=== PATIENT | female | born 1945 | race Caucasian/White ===

== ENCOUNTER → 2024-01-28 11:22 | Outpatient (REF) | payer MEDICARE, BC, SELFPAY | LOC: REG 11:22 | PROVIDERS: ATTENDING PHYSICIAN Internal Medicine | DX: M54.2 Cervicalgia (principal) | CPT/HCPCS: 72052 ==

== ENCOUNTER → 2024-08-25 08:10 | Outpatient (REF) | payer MEDICARE, BC, SELFPAY ==
[2024-08-25 09:19] LABS: % Basophils 1.1 % (0-2); % Eosinophils 5.1 % (0-6); % Immature Granulocytes 0.3 % (0-0.5); % Lymphocytes 26.6 % (20.5-51.1); % Monocytes 6.7 % (1.7-9.3); % Neutrophils 60.2 % (42.2-75.2); Absolute Basophils 0.1 10^3/uL (0-0.2); Absolute Eosinophils 0.4 10^3/uL (0-0.7); Absolute Lymphocytes 1.9 10^3/uL (1.2-3.4); Absolute Monocytes 0.5 10^3/uL (0.1-0.6); Absolute Neutrophils 4.3 10^3/uL (1.4-6.5); Hematocrit 50.3 % (37.0-47.0); Hemoglobin 15.8 g/dL (12.0-16.0); Mean Corp Hgb Conc. 31.4 g/dL (33.0-37.0); Mean Corpuscular Hgb 29.6 pg (27.0-31.0); Mean Corpuscular Volume 94.4 fL (81.0-99.0); Mean Platelet Volume 10.4 fL (7.4-10.4); Nucleated Red Blood Cells % 0 %; Platelet Count 219 10^3/uL (130-400); Red Blood Cell Count 5.33 10^6/uL (4.20-5.40); Red Cell Dist. Width 14.2 % (11.5-14.5); White Blood Cell Count 7.2 10^3/uL (4.8-10.8)
[2024-08-25 09:30] LABS: ALT (SGPT) 21 U/L (0-35); AST (SGOT) 21 U/L (14-36); Albumin 4.4 g/dl (3.5-5.0); Alkaline Phosphatase 137 U/L (38-126); Blood Urea Nitrogen 19 mg/dl (7-17); Calcium 9.5 mg/dl (8.4-10.2); Carbon Dioxide 27 mmol/L (22-30); Chloride 102 mmol/L (98-107); Glucose 137 mg/dl (70-99); HDL Cholesterol 72 mg/dl; LDL Cholesterol, Calculated 92 mg/dl; Potassium 4.6 mmol/L (3.5-5.1); Sodium 139 mmol/L (135-145); Total Bilirubin 0.7 mg/dl (0.2-1.3); Total Cholesterol 187 mg/dl (50-199); Total Protein 6.8 g/dl (6.3-8.2); Triglyceride 115 mg/dl (10-149); Very Low Density Lipoprotein 23 mg/dl (0-30); eGFR > 60.00
[2024-08-25 09:57] LABS: TSH Reflex To Free T4 1.43 uIU/ml (0.47-4.68)
[2024-08-25 10:19] LABS: Glycohemoglobin (HgbA1c) 6.2 % (4.0-5.6)
== END ==
LOC: REG 08:10
PROVIDERS: ATTENDING PHYSICIAN Internal Medicine
DX: I10 Essential (primary) hypertension (principal); E11.9 Type 2 diabetes mellitus without complications; E03.9 Hypothyroidism, unspecified
CPT/HCPCS: 36415; 80053; 80061; 83036; 84443; 85025

== ENCOUNTER → 2024-11-17 12:57 | Outpatient (REF) | payer OTHER, SELFPAY | LOC: WDC 12:57 | PROVIDERS: ATTENDING PHYSICIAN Internal Medicine | DX: Z78.0 Asymptomatic menopausal state (principal); Z12.31 Encounter for screening mammogram for malignant neoplasm of breast | CPT/HCPCS: 77063; 77067; 77080 ==

== ENCOUNTER → 2024-12-29 13:03 | Outpatient (REF) | payer OTHER, SELFPAY | LOC: RAD 13:03 | PROVIDERS: ATTENDING PHYSICIAN Internal Medicine | DX: M25.531 Pain in right wrist (principal) | CPT/HCPCS: 73110 ==

== ENCOUNTER → 2025-02-09 08:30 | Outpatient (REF) | payer OTHER, SELFPAY ==
[2025-02-09 10:49] LABS: Glycohemoglobin (HgbA1c) 6.5 % (4.0-5.6)
[2025-02-09 11:07] LABS: ALT (SGPT) 20 U/L (0-35); AST (SGOT) 18 U/L (14-36); Albumin 4.2 g/dl (3.5-5.0); Alkaline Phosphatase 140 U/L (38-126); Blood Urea Nitrogen 23 mg/dl (7-17); Calcium 9.8 mg/dl (8.4-10.2); Carbon Dioxide 26 mmol/L (22-30); Chloride 110 mmol/L (98-107); Glucose 124 mg/dl (70-99); HDL Cholesterol 64 mg/dl; LDL Cholesterol, Calculated 97 mg/dl; Potassium 5.4 mmol/L (3.5-5.1); Sodium 144 mmol/L (135-145); Total Bilirubin 0.9 mg/dl (0.2-1.3); Total Cholesterol 181 mg/dl (50-199); Total Protein 6.7 g/dl (6.3-8.2); Triglyceride 102 mg/dl (10-149); Very Low Density Lipoprotein 20 mg/dl (0-30); eGFR 57.66
[2025-02-09 11:17] LABS: TSH Reflex To Free T4 1.45 uIU/ml (0.47-4.68)
== END ==
LOC: REG 08:30
PROVIDERS: ATTENDING PHYSICIAN Internal Medicine
DX: Z13.31 Encounter for screening for depression (principal); I10 Essential (primary) hypertension; E11.9 Type 2 diabetes mellitus without complications; E03.9 Hypothyroidism, unspecified
CPT/HCPCS: 36415; 80053; 80061; 83036; 84443

== ENCOUNTER 2025-02-21 10:36 | Inpatient (IN) | payer OTHER, SELFPAY ==
[2025-02-20 22:22] VITALS: BP 147/63; BMI 38.8
[2025-02-20 22:24] VITALS: BP 147/63
[2025-02-20 23:01] VITALS: BP 131/57
--- NOTE | 2025-02-20 23:30 | EDRN ---
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
[2025-02-21] VITALS (14 sets, daily range): BP systolic 117–146; BP diastolic 49–76
--- NOTE | 2025-02-21 01:30 | EDRN ---
Patient and were updated on wait, patient is resting comfortably at this time states no pain at the moment, did offer ice or warm blanket, patient stated she had been urinating a lot so a urine specimen was sent, call oro in reach informed
patient to call if any issues.
[2025-02-21 01:37] LABS: Urine Character Clear (Clear)
[2025-02-21 01:49] LABS: Glucose - Point of Care 103 mg/dl (70-99)
--- NOTE | 2025-02-21 03:45 | EDRN ---
out to desk asking when they are going to be seen, patient is asleep at this time, informed him the providers are moving as quickly as they can and i will update them with any more information i can.
[2025-02-21] MEDS: NSS 500 IV (06:01)
[2025-02-21] MEDS: TORADOL 15 MG IV (06:02)
[2025-02-21 06:05] LABS: Hematocrit 43.1 % (37.0-47.0); Hemoglobin 14.4 g/dL (12.0-16.0); Mean Corp Hgb Conc. 33.4 g/dL (33.0-37.0); Mean Corpuscular Volume 89.6 fL (81.0-99.0); Nucleated Red Blood Cells % 0 %; Platelet Count 186 10^3/uL (130-400); Red Cell Dist. Width 14.4 % (11.5-14.5)
[2025-02-21 06:28] LABS: ALT (SGPT) 19 U/L (0-35); AST (SGOT) 19 U/L (14-36); Albumin 3.9 g/dl (3.5-5.0); Alkaline Phosphatase 109 U/L (38-126); Blood Urea Nitrogen 19 mg/dl (7-17); Calcium 9.2 mg/dl (8.4-10.2); Carbon Dioxide 24 mmol/L (22-30); Chloride 112 mmol/L (98-107); Estimated Creatinine Clearance 60 ml/min; Glucose 111 mg/dl (70-99); Lipase 156 U/L (23-300); Potassium 4.4 mmol/L (3.5-5.1); Sodium 142 mmol/L (135-145); Total Protein 6.2 g/dl (6.3-8.2); eGFR > 60.00
--- NOTE | 2025-02-21 06:49 | EDRN ---
Patient and family updated on labs, pain is better, aware she is just waiting on CT
--- NOTE | 2025-02-21 07:12 | EDRN ---
Report to Jhon Jackson
--- NOTE | 2025-02-21 08:28 | ED.GENMED ---
History of Present Illness
General
Chief Complaint: Musculo-Skeletal Complaint
Source: patient
Exam Limitations: none
Time Seen by Provider: 02/21/25 05:48
History of Present Illness
History of Present Illness:
79-year-old female complaining of severe left flank pain. Started while bending over in the kitchen. But actually started mildly 3 to 4 weeks ago. Much worse with this episode overnight. No urinary symptoms no general abdominal pain no fever
chills no chest pain shortness of breath. No pleuritic pain. Patient called an ambulance because of the severe pain
Past History
Past History
ED Past Medical History: HTN and NIDDM
ED Past Surgical History: Cholecystectomy and Orthopedic
Social History
Tobacco: Non-smoker
Personal:
Living: with family
Review of Systems
Review of Systems
All Other Systems: Not applicable
Respiratory: Reports no symptoms
Cardiac: Reports no symptoms
Phy Exam
Physical Exam
Physical Exam:
GENERAL: Alert and oriented in no apparent distress
EYE: Orbits normal.
NECK: Supple, no significant adenopathy.
ENT: Pharynx without erythema
CARDIAC: Regular rate and rhythm without any obvious murmurs.
LUNGS: Clear breath sounds,normal
ABDOMEN: Soft, tenderness left flank mild left upper quadrant tenderness. Mild left lower quadrant tenderness. No rebound or guarding no mass or hernia
NEUROLOGICAL: Alert and oriented , grossly non-focal
SKIN: Warm and dry, no rash or lesion, no discoloration, skin intact.
MUSCULOSKELETAL: No edema,no deformity.Good color
PSYCH: Normal and appropriate interaction.
Course
Orders/Labs/Results
Orders:
Orders
02/21/25 01:27
Urinalysis Reflex To Culture Urgent
Date Specimen was Collected: 02/21/25
Time Specimen was Collected: 01:23
02/21/25 05:53
IV Insert/Care/Rem.- Treatment PRN
02/21/25 05:57
IV Insert/Care/Rem.- Treatment PRN
0.9% Sodium Chloride 500 ml [Nss] 500 ml IV BOLUS
Ketorolac [Toradol] 15 mg IV NOW STA
02/21/25 05:58
CT Abd/Pel (IV only)-DH only Urgent
Comment:
Reason For Exam: Left flank pain
02/21/25 05:59
Complete Blood Count/With Diff Urgent
Comprehensive Metabolic Panel Urgent
Lipase Urgent
Abnormal Lab Results
02/21/25 02/21/25 02/21/25
01:27 01:47 05:59
Chloride 112 H mmol/L
(98-107)
BUN 19 H mg/dl
(7-17)
Glucose 111 H mg/dl
(70-99)
Total Protein 6.2 L g/dl
(6.3-8.2)
Urine Glucose 4+ A
(Negative)
POC Glucose 103 H mg/dl
(70-99)
02/21/25 05:59
02/21/25 05:59
Vital Signs
Initial and Last Documented VS:
Initial Vital Signs
Temp Pulse Resp BP Pulse Ox
97.6 F 71 16 147/63 100
02/20/25 22:22 02/20/25 22:22 02/20/25 22:22 02/20/25 22:22 02/20/25 22:22
Last Documented Vital Signs
Temp Pulse Resp BP Pulse Ox
97.6 F 78 16 139/70 96
02/20/25 22:22 02/21/25 07:35 02/21/25 07:35 02/21/25 09:00 02/21/25 09:30
MDM/Problems Addressed
Differential Diagnosis Includes:
In many ways patient is symptoms described are musculoskeletal. However she is tender in the left upper quadrant left lower quadrant. She has a history of a bowel resection. CT scan all pending. She did attempt to get up to go to the bathroom
was in significant pain with positional movement. I still feel it is most likely a musculoskeletal issue however with level of pain and discomfort warrants inpatient management
*Radiology
Radiology exam reviewed: radiology read reviewed (No acute findings)
*Pulse Oximetry
SaO2: 96
Oxygen Mode of Delivery: Room air
Patient hypoxic: no
*Critical Care Note
Total Time (30-74mins, 75-104mins- exclusive of procedures): Not Applicable
ED Attending Note
-
Portions of this chart may have been created with voice recognition software.� Occasional wrong word or��sound alike� substitutions may have occurred due to the inherent limitations of voice recognition software.
Discharge Plan
Departure
Patient Disposition: Admit
Date of Disposition: 02/21/25
Time of Disposition: 08:30
Presentation/result/management discussed w/ accepting MD/DO: Hospitalist
Discharge Problem:
Intractable left flank pain
Prescriptions:
No Action
losartan 50 MG tablet
25 mg PO QPM
multivitamin [Multi-Day] 1 EACH tablet
1 ea PO DAILY
levothyroxine 75 MCG tablet
75 mcg PO DAILY AT 0700
Vitamin D3:
2,000 units PO DAILY
Jardiance 25 mg Tablet
25 mg PO DAILY
Ozempic 1 mg/dose (4 mg/3 mL) Pen Injector
1 mg SC QWEEK
Livalo
0 mg PO .2XAWEEK
Referrals:
Alexandra Cooper MD [Family Provider, Internal Medicine]
Interventions
Interventions:
*Risk Screen - Suicide Last Done: 02/20/25 22:22
*General Assessment Last Done: 02/20/25 22:22
*ED COVID-19 Vaccine History Last Done: 02/20/25 22:22
ED-Musculoskeletal Assessment Last Done: 02/21/25 08:00
Discharge Date and Time
Print Language: SERBIAN
--- NOTE | 2025-02-21 08:51 | HPS.HSE ---
Family Physician
-
Family Physician: Alexandra Cooper
Chief Complaint
-
Abdominal pain for a few hours
History of Present Illness
79 years old female presented with lower abdominal pain. Described as left-sided and colicky in nature. Not radiating. Not associated with nausea or vomiting. She did not have fever or chills. She reports history of slow bowel
movement/constipation. No diarrhea. Patient reported that she has been getting this pain on and off but recently increased in severity. She noted that her Ozempic dose was increased since November and that might have been the issue. She denies
nausea vomiting but she reports poor appetite. She lost 20 pounds since then. In the emergency room, she did not have leukocytosis. CAT scan of the abdomen and pelvis with IV contrast did not show acute findings or inflammation.
Medical History
Past Medical History
Past Medical History: Reports Other (Obesity, arthritis, hypothyroidism, hypertension, type 2 diabetes, osteoarthritis)
Past Surgical History: Reports Other (No recent major surgery)
Social History
Tobacco: Non-smoker
Alcohol: None
Drug: None
Personal:
Living: With Family
Employment: Retired
Family History
Family History: Not pertinent
Allergies / Home Medications
Allergies reflects when Allergies were last updated in [employer].
Home Medications with original date entered in [employer]
Allergy/Medication List:
Allergies
Allergy/AdvReac Type Severity Reaction Status Date / Time
amoxicillin (From Augmentin) Allergy Mild Vomiting Verified 02/20/25 22:29
clavulanic acid (From Allergy Mild Vomiting Verified 02/20/25 22:29
Augmentin)
cefuroxime axetil (From Allergy severe Verified 02/20/25 22:28
Ceftin) hives
Metronidazole HCl (From Allergy tongue Verified 02/20/25 22:28
Flagyl) swells
oxycodone HCl (From Percocet) Allergy Pt had Verified 02/21/25 12:34
taken
oxycodone
in 2009
without
reaction
propoxyphene napsylate (From Allergy hallucinati Verified 02/20/25 22:28
Darvocet-N 100) ons
Enviormental Allergy Itching Uncoded 02/20/25 22:28
eyes and
throat,
nasal
congestion,
cough,
tired
Home Medications
losartan 50 mg tablet 25 mg PO QPM 03/29/11
Vitamin D3: 2,000 units PO DAILY 05/24/15
levothyroxine 75 mcg tablet 75 mcg PO DAILY AT 0700 05/24/15
multivitamin (Multi-Day tablet) 1 ea PO DAILY 05/24/15
Livalo 0 mg PO .2XAWEEK 02/21/25
empagliflozin 25 mg tablet (Jardiance) 25 mg PO DAILY 02/21/25
semaglutide 1 mg/dose (4 mg/3 mL) subcutaneous pen injector (Ozempic) 1 mg SC QWEEK 02/21/25
Review of Systems
-
History Source: Patient
A 12 point ROS was completed and negative except as noted: Yes
Constitutional: Denies Fever or Chills
EENT: Denies Sore Throat or Runny Nose
Respiratory: Denies Cough or Trouble Breathing
Cardiac: Denies Chest Pain
Abdomen/GI: Reports Abdominal Pain and Constipated; Denies Nausea, Vomiting, Diarrhea or Black Stools
: Reports Incontinence; Denies Dysuria
Musculoskeletal: Denies Joint Swelling, Muscle Pain or Muscle Stiffness
Skin: Denies Itching or Rash
Neurological: Denies Headache or Numbness
Endocrine: Denies Temp Intolerance
Hematologic/Lymphatic: Denies Bruising
Psych: Denies Panic Disorder
Physical Exam
Vital Signs
Vital Signs
Temp Pulse Resp BP Pulse Ox
97.6 F 78 16 136/71 96
02/20/25 22:22 02/21/25 07:35 02/21/25 07:35 02/21/25 07:35 02/21/25 08:30
Physical Exam
General: No Apparent Distress, Comfortable and Obese
HEENT: Moist mucous membranes and Atraumatic
Respiratory: Clear
Cardiac: S1/S2 and Regular Rhythm
GI: Soft, Non Distended, Normal Bowel Sounds and Tender (Mildly tender lower abdomen on deep palpation only)
Genito-urinary: No costovertebral tender; No Melton
Musculoskeletal: No Clubbing, No Cyanosis and No Edema
Skin: Warm and Dry; No Jaundice
Neuro: AO x 3 and Nonfocal/grossly intact; No Slurred Speech, Facial Droop or Tremors
Psych: Calm and Intact Judgment/Insight
Laboratory Results
-
02/21/25 05:59
02/21/25 05:59
Laboratory Results
Total Bilirubin 0.9 mg/dl (0.2-1.3) 02/21/25 05:59
AST 19 U/L (14-36) 02/21/25 05:59
ALT 19 U/L (0-35) 02/21/25 05:59
Alkaline Phosphatase 109 U/L (38-126) 02/21/25 05:59
Lipase 156 U/L (23-300) 02/21/25 05:59
Impression/Plan
-
79-year-old female presented with abdominal pain
#Abdominal pain
Patient reports that abdominal pain has been going on and off in the last few months. May be associated with increasing dose of Ozempic. No nausea or vomiting but she lost weight. She reported it was left lower quadrant and mainly colicky in
nature. No nausea or vomiting. No diarrhea. CAT scan did not show acute diverticulitis.
Differential diagnosis include constipation related, Ozempic side effect, radiculopathy, others.
No signs of acute/active ambulation with normal WBC, CAT scan no acute findings. Absence of fever or chills. No diarrhea. Urine test not consistent with UTI. Pain is not radiated to lower extremity. Negative straight leg raising test.
For now, would recommend to hold Ozempic.
Will give MiraLAX twice daily. Discussed with radiologist. Stool noted in the intestine but no impaction or significant burden
Will give pain control with Tylenol. Will recommend outpatient GI follow-up if continues to have a problem
# Diabetes, will continue home medication and will add insulin sliding scale, check hemoglobin A1c
#Hypothyroidism, no changes intended
#Obesity, BMI 38
DVT prophylaxis with subcu heparin
Total time spent to see the patient, examine the patient, review data and lab result, discuss treatment plan with patient, ER doctor, family of the patient, nursing staff around 75 minutes
[2025-02-21 12:44] LABS: Glucose - Point of Care 93 mg/dl (70-99)
[2025-02-21] MEDS: MIRALAX 17 GRAMS PO ×2 (13:10→19:25)
[2025-02-21 17:01] LABS: Glucose - Point of Care 117 mg/dl (70-99)
[2025-02-21] MEDS: COZAAR 25 MG PO (17:20)
[2025-02-21] MEDS: HEPARIN 5000 UNITS SC (19:25)
[2025-02-21 21:18] LABS: Glucose - Point of Care 87 mg/dl (70-99)
[2025-02-22 03:00] VITALS: BP 137/98
[2025-02-22 06:00] VITALS: BMI 36.5
[2025-02-22] MEDS: SYNTHROID 75 MCG PO (06:00)
[2025-02-22 06:05] LABS: Hematocrit 45.1 % (37.0-47.0); Hemoglobin 14.7 g/dL (12.0-16.0); Mean Corp Hgb Conc. 32.6 g/dL (33.0-37.0); Mean Corpuscular Volume 91.7 fL (81.0-99.0); Platelet Count 193 10^3/uL (130-400); Red Cell Dist. Width 14.4 % (11.5-14.5)
[2025-02-22 06:26] LABS: ALT (SGPT) 19 U/L (0-35); AST (SGOT) 19 U/L (14-36); Albumin 3.9 g/dl (3.5-5.0); Alkaline Phosphatase 107 U/L (38-126); Blood Urea Nitrogen 14 mg/dl (7-17); Calcium 9.1 mg/dl (8.4-10.2); Carbon Dioxide 24 mmol/L (22-30); Chloride 111 mmol/L (98-107); Estimated Creatinine Clearance 54 ml/min; Glucose 108 mg/dl (70-99); Potassium 4.7 mmol/L (3.5-5.1); Sodium 140 mmol/L (135-145); Total Protein 6.1 g/dl (6.3-8.2); eGFR > 60.00
[2025-02-22] MEDS: HEPARIN 5000 UNITS SC ×2 (07:05→20:37)
[2025-02-22] MEDS: FARXIGA 10 MG PO (07:05)
[2025-02-22] MEDS: MIRALAX 17 GRAMS PO ×2 (07:07→20:37)
[2025-02-22 07:31] LABS: Glucose - Point of Care 115 mg/dl (70-99)
[2025-02-22 07:46] VITALS: BP 126/76
--- NOTE | 2025-02-22 08:19 | CON.GI ---
Medical History
Chief Complaint / HPI
Chief Complaint: Left-sided abdominal pain for months that is progressively worsened
History of Present Illness:
Renay is a 79-year-old female with history of diverticulitis status post sigmoid resection over a decade ago, obesity and diabetes who recently started Ozempic this year. She comes in with months of intermittent left-sided abdominal pain that
became severe just prior to admission without fever chills and normal labs.
She has a history of cholecystectomy and states her bowel movements have always been at least once a day loose yellow-colored but after being on Ozempic she is going every 3 to 5 days. Is still loose. Denies any mucus blood.
Patient was due for her colonoscopy in November with Dr. Kelly at [facility] but canceled because of needing an office visit to discuss this left-sided pain. She is awaiting her outpatient appointment.
She has chronic reflux and controls it with diet. Not on PPI. No nausea or vomiting. If her pain gets exceptionally severe like he did the night before she came in she may get mildly queasy. She describes the pain over her left abdomen as
twisting crampy pain
. It lasts less than a minute and comes and goes throughout the day. States it goes away with time. Nothing relieves it. Nothing makes it worse. It does not radiate. She feels like she needs to move her bowels but cannot
Past Medical History
Past Medical History: Other (Obesity, arthritis, pandiverticulosis, hypertension, type 2 diabetes, GERD, sleep apnea)
Past Surgical History: Cholecystectomy, Orthopedic (Right knee replacement) and Other (Per outpatient records cholecystectomy, colonic resection for diverticulitis, knee replacements, neck fusion, laminectomy)
Social History
Tobacco: Non-Smoker
Alcohol: None
Drug: None
Personal:
Living: With Family
Employment: Retired
Family History
Family History: Other (Multiple myeloma breast cancer)
Allergies / Home Medications
Allergy/AdvReac Type Severity Reaction Status Date / Time
amoxicillin (From Augmentin) Allergy Mild Vomiting Verified 02/20/25 22:29
clavulanic acid (From Allergy Mild Vomiting Verified 02/20/25 22:29
Augmentin)
cefuroxime axetil (From Allergy severe Verified 02/20/25 22:28
Ceftin) hives
Metronidazole HCl (From Allergy tongue Verified 02/20/25 22:28
Flagyl) swells
oxycodone HCl (From Percocet) Allergy Pt had Verified 02/21/25 12:34
taken
oxycodone
in 2009
without
reaction
propoxyphene napsylate (From Allergy hallucinati Verified 02/20/25 22:28
Darvocet-N 100) ons
Enviormental Allergy Itching Uncoded 02/20/25 22:28
eyes and
throat,
nasal
congestion,
cough,
tired
�Medication �Instructions �Recorded
losartan 50 mg tablet 25 mg PO QPM 03/29/11
Vitamin D3: 2,000 units PO DAILY 05/24/15
levothyroxine 75 mcg tablet 75 mcg PO DAILY AT 0700 05/24/15
multivitamin (Multi-Day tablet) 1 ea PO DAILY 05/24/15
Livalo 0 mg PO .2XAWEEK 02/21/25
empagliflozin 25 mg tablet 25 mg PO DAILY 02/21/25
(Jardiance)
semaglutide 1 mg/dose (4 mg/3 mL) 1 mg SC QWEEK 02/21/25
subcutaneous pen injector (Ozempic)
Review of Systems
-
All other systems: A 12 pt ROS was Negative except as stated above in HPI
Constitutional: Reports Weight Loss (20 pound intentional weight loss with Ozempic)
Neurological: Reports No Symptoms
Endocrine: Reports No Symptoms
Hematologic/Lymphatic: Reports No Symptoms
Vital Signs
Temp Pulse Resp BP Pulse Ox
97.8 F 76 17 126/76 97
02/22/25 07:46 02/22/25 07:46 02/22/25 07:46 02/22/25 07:46 02/22/25 07:46
Physical Exam
Exam
General: No Apparent Distress
HEENT: Anicteric
Cardiac: S1/S2
GI: Soft, Non Distended, Normal Bowel Sounds (Hypoactive bowel sounds) and Tender ( tender with some mild rebound on the left side)
Neuro: AO x 3
Psych: Calm
Results
WBC 6.7 10^3/uL (4.8-10.8) 02/22/25 05:24
Hgb 14.7 g/dL (12.0-16.0) 02/22/25 05:24
Hct 45.1 % (37.0-47.0) 02/22/25 05:24
MCV 91.7 fL (81.0-99.0) 02/22/25 05:24
Plt Count 193 10^3/uL (130-400) 02/22/25 05:24
Absolute Neuts (auto) 3.7 10^3/uL (1.4-6.5) 02/21/25 05:59
Sodium 140 mmol/L (135-145) 02/22/25 05:24
Potassium 4.7 mmol/L (3.5-5.1) 02/22/25 05:24
Chloride 111 mmol/L (98-107) H 02/22/25 05:24
Carbon Dioxide 24 mmol/L (22-30) 02/22/25 05:24
BUN 14 mg/dl (7-17) 02/22/25 05:24
Creatinine 0.9 mg/dL (0.6-1.0) 02/22/25 05:24
Calcium 9.1 mg/dl (8.4-10.2) 02/22/25 05:24
Total Bilirubin 1.0 mg/dl (0.2-1.3) 02/22/25 05:24
AST 19 U/L (14-36) 02/22/25 05:24
ALT 19 U/L (0-35) 02/22/25 05:24
Alkaline Phosphatase 107 U/L (38-126) 02/22/25 05:24
Lipase 156 U/L (23-300) 02/21/25 05:59
Diagnostic Image Results:
CT scan with IV contrast only 02/21/2025 for left flank pain no oral contrast. Surgically absent gallbladder,. Colonic diverticulosis without diverticulitis, rectosigmoid anastomosis present from previous bowel resection with no bowel thickening
obstruction or inflammation. No ascites free air or fluid collection. No adenopathy.
Prior GI Procedures:
EGD: 2019 Normal EGD with biopsies taken. Esophagus had normal mucosa but a 50 Syriac dilation was done
Colonoscopy: 2019, Dr. Kelly did EGD and colonoscopy. Colonoscopy shows multiple diverticuli throughout the colon, 6 mm ascending polypectomy and medium internal hemorrhoids. Suggested repeat in 5 years
Assessment / Plan
-
Renay is a 79-year-old obese female on Ozempic with expected 20 pound weight loss, prior sigmoid resection for diverticulitis who comes in with intermittently severe left-sided abdominal pain has had a significant change in bowel habits since
starting GLP-1 with worsening constipation
# Abdominal pain
-- CT scan was done without oral contrast only IV contrast. No significant findings other than pandiverticulosis. I did review her CT scan from yesterday. Does not appear to be impacted
-- Her labs are unrevealing with no leukocytosis, normal LFTs, no anemia
-- Her symptoms sound constipation related -will start with a medical molasses enema to relieve from below. She may have significant hard stool above the anastomosis site, then will start magnesium citrate bottle to help clean her out.
-- If her symptoms do not improve despite cleanout we will reimage her with a CT with oral and IV contrast -she has tenderness and pain that comes and goes
-- The patient is known to Dr. Kelly GI -is due for her colonoscopy. She was good to have it in November but started having these pains and is awaiting her outpatient appointment
-- On Sunday she needs to call them saying she is in the hospital and needs a sooner follow-up
Data Reviewed
-
CT Scan: Report Reviewed by me
Old Records: Reviewed
-
-
Thank you for consultation and allowing me to participate in the patient's care. Please call the budget controller GI physician during the after hours with any questions or concerns.
--- NOTE | 2025-02-22 09:18 | W.PN.HOSP.TC ---
Today's Communication/Plan
-
GI consult
Assessment / Plan
Assessment / Plan
Physical Exam
General: No Apparent Distress, Comfortable and Obese
HEENT: Moist mucous membranes and Atraumatic
Respiratory: Clear
Cardiac: S1/S2 and Regular Rhythm
GI: Soft, Non Distended, Normal Bowel Sounds and Tender (Mildly tender lower abdomen on deep palpation only)
Genito-urinary: No costovertebral tender; No Melton
Musculoskeletal: No Clubbing, No Cyanosis and No Edema
Skin: Warm and Dry; No Jaundice
Neuro: AO x 3 and Nonfocal/grossly intact; No Slurred Speech, Facial Droop or Tremors
Psych: Calm and Intact Judgment/Insight
79-year-old female presented with abdominal pain
#Abdominal pain
Patient reports that abdominal pain has been going on and off in the last few months. May be associated with increasing dose of Ozempic since November. No nausea or vomiting but she lost weight. She reported it was left lower quadrant and mainly
colicky in nature. No nausea or vomiting. No diarrhea. CAT scan did not show acute diverticulitis.
Differential diagnosis include constipation related, Ozempic side effect, radiculopathy, others.
No signs of acute/active ambulation with normal WBC, CAT scan no acute findings. Absence of fever or chills. No diarrhea. Urine test not consistent with UTI. Pain is not radiated to lower extremity. Negative straight leg raising test.
For now, would recommend to hold Ozempic.
s/p MiraLAX with BM but cramps still there.
c/w pain control with Tylenol.
Consult GI
# Diabetes, will continue home medication
C/w insulin sliding scale
Hemoglobin A1c 6.5 in January 2025
#Hypothyroidism, no changes intended
#Obesity, BMI 38
DVT prophylaxis with subcu heparin
Total time spent to see the patient, examine the patient, review data and lab result, discuss treatment plan with patient, nursing staff around 55 minutes
Anticipated Discharge: Today
Subjective/Interval History
-
Date of Service: February 22, 2025
Objective Data
-
Labs:
Laboratory Results
02/22/25
05:24
WBC 6.7
Hgb 14.7
Hct 45.1
Plt Count 193
Sodium 140
Potassium 4.7
Chloride 111 H
Carbon Dioxide 24
BUN 14
Creatinine 0.9
Glucose 108 H
Calcium 9.1
Total Bilirubin 1.0
AST 19
ALT 19
Alkaline Phosphatase 107
Vital Signs:
Vital Signs
Temp Pulse Resp BP Pulse Ox
97.8 F 76 17 126/76 97
02/22/25 07:46 02/22/25 07:46 02/22/25 07:46 02/22/25 07:46 02/22/25 07:46
I&O
02/21/25 02/22/25 02/23/25
06:59 06:59 06:59
Intake Total 1620 / 1620
Output Total 800 / 800
Balance -800 / -800 1620 / 1620
[2025-02-22] MEDS: CITROMA 300 ML PO (10:22)
--- NOTE | 2025-02-22 11:05 | CM ---
Patient seen at bedside with
IA completed
dx: abdominal pain
PMH: Obesity, arthritis, hypothyroidism, hypertension, type 2 diabetes, osteoarthritis
Lives in a split level home with , 1 NADIA, 7 steps to bedroom/bath
PLOF: Independent, no device
DME: Walker, cane, shower seat, grab bars
Denies insecurities
Had home health in 2010 (does not recall agency), Has been at [facility] 2010
PCP: Alexandra Cooper
Pharmacy: [address]
PLAN: home, no needs anticipated, CM to continue to follow
[2025-02-22 11:34] LABS: Glucose - Point of Care 103 mg/dl (70-99)
[2025-02-22 15:14] VITALS: BP 123/63
[2025-02-22 16:27] LABS: Glucose - Point of Care 117 mg/dl (70-99)
[2025-02-22] MEDS: COZAAR 25 MG PO (17:02)
[2025-02-22] MEDS: ULTRAM 50 MG PO (17:02)
[2025-02-22] MEDS: DILAUDID 0.25 MG IV (21:56)
[2025-02-22 22:16] LABS: Glucose - Point of Care 107 mg/dl (70-99)
[2025-02-22 23:00] VITALS: BP 112/53
[2025-02-23 07:17] LABS: Glucose - Point of Care 131 mg/dl (70-99)
[2025-02-23 07:21] VITALS: BP 129/62
[2025-02-23 07:40] LABS: Hematocrit 49.8 % (37.0-47.0); Hemoglobin 15.8 g/dL (12.0-16.0); Mean Corp Hgb Conc. 31.7 g/dL (33.0-37.0); Mean Corpuscular Volume 93.1 fL (81.0-99.0); Platelet Count 229 10^3/uL (130-400); Red Cell Dist. Width 14.6 % (11.5-14.5)
[2025-02-23] MEDS: FARXIGA 10 MG PO (08:27)
[2025-02-23] MEDS: HEPARIN 5000 UNITS SC ×2 (08:27→20:59)
[2025-02-23] MEDS: SYNTHROID 75 MCG PO (08:27)
[2025-02-23] MEDS: MIRALAX PO ×2 (08:31→21:04)
[2025-02-23 08:40] LABS: Blood Urea Nitrogen 15 mg/dl (7-17); Calcium 9.9 mg/dl (8.4-10.2); Carbon Dioxide 22 mmol/L (22-30); Chloride 108 mmol/L (98-107); Estimated Creatinine Clearance 52 ml/min; Glucose 138 mg/dl (70-99); Potassium 4.4 mmol/L (3.5-5.1); Sodium 138 mmol/L (135-145); eGFR > 60.00
[2025-02-23 12:11] LABS: Glucose - Point of Care 80 mg/dl (70-99)
--- NOTE | 2025-02-23 12:41 | W.PN.HOSP.TC ---
Today's Communication/Plan
-
Monitor vitals
See plan
GI following
Laxatives
Assessment / Plan
Assessment / Plan
Physical Exam
General: No Apparent Distress, Comfortable and Obese
HEENT: Moist mucous membranes and Atraumatic
Respiratory: Clear
Cardiac: S1/S2 and Regular Rhythm
GI: Soft, Non Distended, Normal Bowel Sounds and Tender (Mildly tender lower abdomen on deep palpation only)
Genito-urinary: No costovertebral tender; No Melton
Musculoskeletal: No Edema
Neuro: AO x 3 and Nonfocal/grossly intact; No Slurred Speech, Facial Droop or Tremors
Psych: Calm and Intact Judgment/Insight
79-year-old female presented with abdominal pain
#Abdominal pain
Patient reports that abdominal pain has been going on and off in the last few months. May be associated with increasing dose of Ozempic since November. No nausea or vomiting but she lost weight. She reported it was left lower quadrant and mainly
colicky in nature. No nausea or vomiting. No diarrhea. CAT scan did not show acute diverticulitis.
Differential diagnosis include constipation related, Ozempic side effect, radiculopathy, others.
No signs of acute/active ambulation with normal WBC, CAT scan no acute findings, however was done without p.o. contrast. Absence of fever or chills. No diarrhea. Urine test not consistent with UTI. Pain is not radiated to lower extremity.
Negative straight leg raising test.
For now, would recommend to hold Ozempic.
s/p MiraLAX with BM but cramps still there.
c/w pain control with Tylenol.
GI following, defer to repeat CT per GI
# Diabetes, will continue home medication
C/w insulin sliding scale
Hemoglobin A1c 6.5 in January 2025
#Hypothyroidism, no changes intended
#Obesity, BMI 38
DVT prophylaxis with subcu heparin
Anticipated Discharge: 24 - 48 hours
Subjective/Interval History
-
Date of Service: February 23, 2025
Does get pain at times
Objective Data
-
Labs:
Laboratory Results
02/23/25
07:27
WBC 7.6
Hgb 15.8
Hct 49.8 H
Plt Count 229
Sodium 138
Potassium 4.4
Chloride 108 H
Carbon Dioxide 22
BUN 15
Creatinine 0.9
Glucose 138 H
Calcium 9.9
Vital Signs:
Vital Signs
Temp Pulse Resp BP Pulse Ox
98.2 F 61 18 129/62 98
02/23/25 07:21 02/23/25 07:21 02/23/25 07:21 02/23/25 07:21 02/23/25 09:37
I&O
02/22/25 02/23/25 02/24/25
06:59 06:59 06:59
Intake Total 1620 / 1620 1919
Balance 1620 / 1620 1919
--- NOTE | 2025-02-23 13:04 | CM ---
Patient seen at bedside with
PT eval 02/21 - likely no needs
PLAN: Home, no needs anticipated, CM to continue to follow
--- NOTE | 2025-02-23 14:17 | PTOTSP ---
Patient feels that she is at her baseline and denied the need for further PT services. Patient denied concerns regarding mobility upon return home and is aware our services are available if needs arise while hospitalized. Will sign off at this time.
[2025-02-23 14:48] VITALS: BP 115/63
--- NOTE | 2025-02-23 16:05 | W.PN.GI.CBS2 ---
Addendum entered and electronically signed by Sondra Mcgowan DO 02/23/25 16:22:
Patient seen and examined independently of CAREN. I agree with her note with my additions below
Renay had multiple bowel movements overnight after the enema and magnesium citrate
-- Unfortunately her left-sided abdominal pain is still pretty tender to palpation. She said it feels slightly better than it did yesterday
-- She is afebrile, has no white count and is not antibiotics
-- Would rescan with IV and oral contrast to ensure no diverticulitis -if the CT scan is negative would discharge home with follow-up with for her colonoscopy that is overdue
Original Note:
Today's Communication / Plan
-
As per plan
Assessment / Plan
-
Renay is a 79-year-old obese female on Ozempic with expected 20 pound weight loss, prior sigmoid resection for diverticulitis who comes in with intermittently severe left-sided abdominal pain has had a significant change in bowel habits since
starting GLP-1 with worsening constipation
# Abdominal pain
-- CT scan was done without oral contrast only IV contrast. No significant findings other than pandiverticulosis. CT scan from 02/21/25 reviewed. Does not appear to be impacted
-- Her labs are unrevealing with no leukocytosis, normal LFTs, no anemia.
-- Pain improved with movement in bowels. Her symptoms sound constipation related.
-- Able to tolerate oral intake without any difficulty or change in sx.
-- The patient is known to Dr. [facility] -is due for her colonoscopy. She was good to have it in November but started having these pains and is awaiting her outpatient appointment. .
-- She needs to call them saying she is in the hospital and needs a sooner follow-up.
Subjective
Subjective
Date of Service: February 23, 2025
Patient with multiple liquid BM after milk and molasses enema and bottle of mag citrate. Pain that she presented with improved. She still has discomfort in left side that she had starting in December. She is tolerating solid diet without any change in
sx. Ate omelet, cauliflower pizza today.
Objective
Data Reviewed
Laboratory Data:
Laboratory Results
02/23/25 07:27
02/23/25 07:27
Laboratory Results
Total Bilirubin 1.0 mg/dl (0.2-1.3) 02/22/25 05:24
AST 19 U/L (14-36) 02/22/25 05:24
ALT 19 U/L (0-35) 02/22/25 05:24
Alkaline Phosphatase 107 U/L (38-126) 02/22/25 05:24
Lipase 156 U/L (23-300) 02/21/25 05:59
Vital Signs and I&O:
Vital Signs
Temp Pulse Resp BP Pulse Ox
98.1 F 68 17 115/63 96
02/23/25 14:48 02/23/25 14:48 02/23/25 14:48 02/23/25 14:48 02/23/25 14:48
I&O
02/22/25 02/23/25 02/24/25
06:59 06:59 06:59
Intake Total 0 / 1620 1919
Balance 1620 / 1620 1919
Physical Exam
Physical Exam
HEENT: Anicteric
Cardiology: Normal Sinus Rhythm
Pulmonary: Clear
GI: Soft, Non Distended, Tender (mild left mid adomen tenderness) and Normal Bowel Sounds
Neuro: Non Focal
[2025-02-23 16:55] LABS: Glucose - Point of Care 111 mg/dl (70-99)
[2025-02-23] MEDS: OMNIPAQUE 50 ML PO (17:00)
[2025-02-23] MEDS: COZAAR 25 MG PO (17:01)
[2025-02-23] MEDS: ULTRAM 50 MG PO (21:09)
[2025-02-23 21:44] LABS: Glucose - Point of Care 151 mg/dl (70-99)
[2025-02-23 23:30] VITALS: BP 110/48
[2025-02-24 07:17] LABS: Hematocrit 49.2 % (37.0-47.0); Hemoglobin 15.6 g/dL (12.0-16.0); Mean Corp Hgb Conc. 31.7 g/dL (33.0-37.0); Mean Corpuscular Volume 92.5 fL (81.0-99.0); Nucleated Red Blood Cells % 0 %; Platelet Count 241 10^3/uL (130-400); Red Cell Dist. Width 14.6 % (11.5-14.5)
[2025-02-24] MEDS: SYNTHROID 75 MCG PO (07:19)
[2025-02-24 07:47] LABS: Blood Urea Nitrogen 17 mg/dl (7-17); Calcium 9.7 mg/dl (8.4-10.2); Carbon Dioxide 25 mmol/L (22-30); Chloride 105 mmol/L (98-107); Estimated Creatinine Clearance 52 ml/min; Glucose 128 mg/dl (70-99); Potassium 4.4 mmol/L (3.5-5.1); Sodium 140 mmol/L (135-145); eGFR > 60.00
[2025-02-24 08:03] VITALS: BP 135/69
[2025-02-24] MEDS: MIRALAX 17 GRAMS PO (08:10)
[2025-02-24] MEDS: FARXIGA 10 MG PO (08:12)
[2025-02-24] MEDS: HEPARIN 5000 UNITS SC (08:12)
[2025-02-24 08:14] LABS: Glucose - Point of Care 112 mg/dl (70-99)
--- NOTE | 2025-02-24 10:57 | W.PN.HOSP.TC ---
Addendum entered and electronically signed by Jj Cano MD 02/24/25 12:11:
discussed with GI and they are okay with patient being discharged.
Time of discharge 37 minutes
Original Note:
Today's Communication/Plan
-
Monitor vitals
See plan
Per patient pain is improving
possible dc today if ok with GI
Assessment / Plan
Assessment / Plan
Physical Exam
General: No Apparent Distress, Comfortable and Obese
HEENT: Moist mucous membranes and Atraumatic
Respiratory: Clear
Cardiac: S1/S2 and Regular Rhythm
GI: Soft, Non Distended, Normal Bowel Sounds and Tender (Mildly tender lower abdomen on deep palpation only)
Genito-urinary: No costovertebral tender; No Mleton
Musculoskeletal: No Edema
Neuro: AO x 3 and Nonfocal/grossly intact; No Slurred Speech, Facial Droop or Tremors
Psych: Calm and Intact Judgment/Insight
79-year-old female presented with abdominal pain
#Abdominal pain
Patient reports that abdominal pain has been going on and off in the last few months. May be associated with increasing dose of Ozempic since November. No nausea or vomiting but she lost weight. She reported it was left lower quadrant and mainly
colicky in nature. No nausea or vomiting. No diarrhea. CAT scan did not show acute diverticulitis.
Differential diagnosis include constipation related, Ozempic side effect, radiculopathy, others.
No signs of acute/active ambulation with normal WBC, CAT scan no acute findings, however was done without p.o. contrast. Absence of fever or chills. No diarrhea. Urine test not consistent with UTI. Pain is not radiated to lower extremity.
Negative straight leg raising test.
For now, would recommend to hold Ozempic.
s/p MiraLAX with BM but cramps still there.
c/w pain control with Tylenol.
GI following, repeat CT scan without diverticulitis, does have diverticulosis. Patient is already scheduled to see GI outpatient
# Diabetes, will continue home medication
C/w insulin sliding scale
Hemoglobin A1c 6.5 in January 2025
#Hypothyroidism, no changes intended
#Obesity, BMI 38
DVT prophylaxis with subcu heparin
Anticipated Discharge: Today
Subjective/Interval History
-
Date of Service: February 24, 2025
pain appears to be little better
Objective Data
-
Labs:
Laboratory Results
02/24/25
06:38
WBC 8.2
Hgb 15.6
Hct 49.2 H
Plt Count 241
Sodium 140
Potassium 4.4
Chloride 105
Carbon Dioxide 25
BUN 17
Creatinine 0.9
Glucose 128 H
Calcium 9.7
Vital Signs:
Vital Signs
Temp Pulse Resp BP Pulse Ox
97.4 F 73 16 135/69 93
02/24/25 08:03 02/24/25 08:03 02/24/25 08:03 02/24/25 08:03 02/24/25 08:23
I&O
02/23/25 02/24/25 02/25/25
06:59 06:59 06:59
Intake Total 1919 900 / 900 480 / 480
Balance 1919 900 / 900 480 / 480
[2025-02-24 11:48] LABS: Glucose - Point of Care 126 mg/dl (70-99)
--- NOTE | 2025-02-24 12:15 | W.DCSUMMARY ---
Discharge Summary
Discharge Data
Date of Admission: 02/21/25
Date of Discharge: 02/24/25
-
Pending Results: No
Hospital Course
79-year-old female with past medical history of obesity, hypothyroidism, diabetes came to the hospital with abdominal pain. Patient was seen by gastroenterology throughout hospitalization. Patient's symptoms were likely thought was secondary to
possible constipation and Ozempic related. Over time her symptoms continue to improve. CT scan was also done which showed diverticulosis however there was no diverticulitis. GI recommended patient to follow-up with her routine outpatient
literacy education professor for colonoscopy. Once her symptoms continue to improve and she was able to tolerate diet, she was then discharged home with instructions to follow-up closely with all her physicians outpatient.
Discharge Plan
-
Patient Disposition: Home (Routine Discharge)
Discharge Diagnosis/Procedures: Abdominal pain
Diverticulosis
Diet: As tolerated
Activity: As tolerated
Driving Restrictions: As prior to admission
Bathing Restrictions: None
Activity Restrictions/Additional Instructions:
Follow-up with your literacy education professor soon as possible
Referrals:
Alexandra Cooper MD [Family Provider, Internal Medicine] - in less than 1 week
Prescriptions:
New
polyethylene glycol 3350 17 gram Powder In Packet
17 g PO DAILY Qty: 0 0RF
tramadol 50 mg Tablet
50 mg PO Q6HPRN PRN (Reason: mod to severe pain) Qty: 10 0RF
acetaminophen [Tylenol Extra Strength] 500 mg Tablet
1,000 mg PO Q6HPRN PRN (Reason: mild to mod pain) Qty: 0 0RF
Continued
losartan 50 MG tablet
25 mg PO QPM
multivitamin [Multi-Day] 1 EACH tablet
1 ea PO DAILY
levothyroxine 75 MCG tablet
75 mcg PO DAILY AT 0700
Vitamin D3:
2,000 units PO DAILY
Jardiance 25 mg Tablet
25 mg PO DAILY
Livalo
0 mg PO .2XAWEEK
Held
Ozempic 1 mg/dose (4 mg/3 mL) Pen Injector
1 mg SC QWEEK
Hold Instructions: Until instructed to take by physician
Discharge Orders:
Discharge Patient (As Directed); Ordered 02/24/25
Ordered By: Jj Cano
Discharge Date and Time
Discharge Date/Time: 02/24/25 13:30
Print Language: GAMBIAN
--- NOTE | 2025-02-24 12:31 | W.PN.GI.CBS2 ---
Today's Communication / Plan
-
no further w/u
Assessment / Plan
-
Renay is a 79-year-old obese female on Ozempic with expected 20 pound weight loss, prior sigmoid resection for diverticulitis who comes in with intermittently severe left-sided abdominal pain has had a significant change in bowel habits since
starting GLP-1 with worsening constipation
# Abdominal pain
-- resolved likely secondary to ozempic, studies were negative
will sign off call with questions
Subjective
Subjective
Date of Service: February 24, 2025
Pt feeling better no abd pain
Objective
Data Reviewed
Laboratory Data:
Laboratory Results
02/24/25 06:38
02/24/25 06:38
Laboratory Results
Total Bilirubin 1.0 mg/dl (0.2-1.3) 02/22/25 05:24
AST 19 U/L (14-36) 02/22/25 05:24
ALT 19 U/L (0-35) 02/22/25 05:24
Alkaline Phosphatase 107 U/L (38-126) 02/22/25 05:24
Lipase 156 U/L (23-300) 02/21/25 05:59
Vital Signs and I&O:
Vital Signs
Temp Pulse Resp BP Pulse Ox
97.4 F 73 16 135/69 93
02/24/25 08:03 02/24/25 08:03 02/24/25 08:03 02/24/25 08:03 02/24/25 08:23
I&O
02/23/25 02/24/25 02/25/25
06:59 06:59 06:59
Intake Total 1919 900 / 900 480 / 480
Balance 1919 900 / 900 480 / 480
Physical Exam
Physical Exam
GI: Soft, Non Distended and Non Tender (mild luq tenderness)
--- NOTE | 2025-02-24 12:51 | CM ---
Met with patient who is medically cleared for discharge. Reviewed IMM. She signed form and it is on chart. RN updated. Patient's spouse in room to transport home.
Plan: Case management will continue to follow and assist with discharge planning. Home with spouse today.
[2025-02-24 13:30] VITALS: BP 120/68
== END 2025-02-24 13:30 | disposition home or self-care (01) | DRG 392 ==
LOC: 3 WEST ACU 10:36
PROVIDERS: Emergency Medicine; ADMITTING PHYSICIAN Internal Medicine; ATTENDING PHYSICIAN Internal Medicine; CONSULT PHYSICIAN Internal Medicine; EMERGENCY PHYSICIAN Emergency Medicine; FAMILY PHYSICIAN Internal Medicine
DX: K59.00 Constipation, unspecified (principal); K57.30 Diverticulosis of large intestine without perforation or abscess without bleeding; T38.3X5A Adverse effect of insulin and oral hypoglycemic [antidiabetic] drugs, initial encounter; G47.30 Sleep apnea, unspecified; I10 Essential (primary) hypertension; K21.9 Gastro-esophageal reflux disease without esophagitis; E03.9 Hypothyroidism, unspecified; Z88.1 Allergy status to other antibiotic agents; Z88.0 Allergy status to penicillin; Z79.85 Long-term (current) use of injectable non-insulin antidiabetic drugs; Z79.890 Hormone replacement therapy; E66.9 Obesity, unspecified; Z68.38 Body mass index [BMI] 38.0-38.9, adult; E11.9 Type 2 diabetes mellitus without complications; M19.90 Unspecified osteoarthritis, unspecified site; Z79.84 Long term (current) use of oral hypoglycemic drugs; Z90.49 Acquired absence of other specified parts of digestive tract; Z96.651 Presence of right artificial knee joint; Z98.1 Arthrodesis status
CPT/HCPCS: 74177; 80048; 80053; 81003; 82962; 83690; 85025; 85027; 96361; 96374; 97162; 99284; Q9967

== ENCOUNTER 2025-03-22 10:04 | Emergency (ER) | payer OTHER, SELFPAY ==
[2025-03-22 10:10] VITALS: BP 145/80
[2025-03-22 11:39] VITALS: BMI 38.9
[2025-03-22 11:54] VITALS: BP 127/64
[2025-03-22 12:00] VITALS: BP 120/60
[2025-03-22 12:13] LABS: Hematocrit 48.4 % (37.0-47.0); Hemoglobin 15.7 g/dL (12.0-16.0); Mean Corp Hgb Conc. 32.4 g/dL (33.0-37.0); Mean Corpuscular Volume 91.8 fL (81.0-99.0); Nucleated Red Blood Cells % 0 %; Platelet Count 144 10^3/uL (130-400); Red Cell Dist. Width 14.9 % (11.5-14.5)
[2025-03-22 12:19] LABS: ALT (SGPT) 23 U/L (0-35); AST (SGOT) 27 U/L (14-36); Albumin 4.2 g/dl (3.5-5.0); Alkaline Phosphatase 108 U/L (38-126); Blood Urea Nitrogen 16 mg/dl (7-17); Calcium 8.9 mg/dl (8.4-10.2); Carbon Dioxide 28 mmol/L (22-30); Chloride 105 mmol/L (98-107); Estimated Creatinine Clearance 46 ml/min; Glucose 130 mg/dl (70-99); Potassium 4.8 mmol/L (3.5-5.1); Sodium 139 mmol/L (135-145); Total Protein 6.6 g/dl (6.3-8.2); eGFR 57.66
[2025-03-22 12:38] LABS: COVID-19 Antigen Positive (Negative)
--- NOTE | 2025-03-22 12:46 | ED.GENMED ---
History of Present Illness
General
Chief Complaint: Chest Pain
Source: patient
Exam Limitations: none
Time Seen by Provider: 03/22/25 12:24
History of Present Illness
History of Present Illness:
79-year-old female presents with 3 to 4 days worth of chills fatigue loss of appetite and intermittent squeezing chest. She was initially seen at the urgent care and sent here for evaluation of the chest discomfort. She states Tylenol helps her
symptoms. She denies fever. No vomiting. No abdominal pain. No diarrhea. No recent travel or surgery. No leg swelling or calf pain. No other complaints at this time. The pain is not any worse with deep breathing
Past History
Past History
ED Past Medical History: HTN and NIDDM
ED Past Surgical History: Cholecystectomy and Orthopedic
Social History
Tobacco: Non-smoker
Personal:
Living: with family
Phy Exam
Physical Exam
Physical Exam:
General: Well-appearing female no acute distress
HEENT normocephalic atraumatic
Heart: Regular rate and rhythm
Lungs: Clear no wheeze
Abdomen is soft nontender nondistended
Extremities: No cyanosis
Skin warm no rash
Scores
Heart Score for Chest Pain Patients
STEMI patient?: No
History: Slightly or Non-Suspicious
ECG: Normal
Age: >/= 65 years
Risk Factors: 1 or 2 Risk Factors
Troponin: </= Normal Limit
Heart Score for Chest Pain Patients: 3
Heart Score Risk: 2.5% MACE over next 6 weeks
Course
Orders/Labs/Results
Orders:
Orders
03/22/25 10:10
Electrocardiogram (*1) Urgent
Reason for Study: Chest Pain
EKG- Treatment ONCE
03/22/25 11:50
CXR2 [CR Chest - 2 Views ] Urgent
Comment:
Reason For Exam: chest pain
03/22/25 11:52
COVID-19 Antigen Urgent
Source: Nasal Swab
Complete Blood Count/With Diff Urgent
Comprehensive Metabolic Panel Urgent
03/22/25 11:53
Influenza A+B Rapid Molecular Urgent
STACY Source: Nasal Swab
Specimen Description:
03/22/25 12:48
Troponin I Urgent
Abnormal Lab Results
03/22/25
11:52
WBC 3.7 L 10^3/uL
(4.8-10.8)
Hct 48.4 H %
(37.0-47.0)
MCHC 32.4 L g/dL
(33.0-37.0)
RDW 14.9 H %
(11.5-14.5)
Absolute Lymphs (auto) 1.0 L 10^3/uL
(1.2-3.4)
Monocytes % 13.7 H %
(1.7-9.3)
Glucose 130 H mg/dl
(70-99)
SARS-CoV-2 Antigen Positive A
(Negative)
03/22/25 11:52
03/22/25 11:52
Vital Signs
Initial and Last Documented VS:
Initial Vital Signs
Temp Pulse Resp Pulse Ox
98.5 F 98 16 97
03/22/25 10:07 03/22/25 10:07 03/22/25 10:07 03/22/25 10:07
Last Documented Vital Signs
Temp Pulse Resp BP Pulse Ox
98.5 F 68 15 121/62 97
03/22/25 10:07 03/22/25 12:45 03/22/25 12:45 03/22/25 13:00 03/22/25 12:50
MDM/Problems Addressed
Differential Diagnosis Includes:
Myalgias, chest pain, fatigue, sore throat. Differential, viral illness, ACS, symptoms not consistent with PE/dissection
VSS
EKG shows NSR, no ischemic changes
CXR without acute findings
COVID/FLU pending
Trop pending
*Pulse Oximetry
SaO2: 97
Oxygen Mode of Delivery: Room air
Patient hypoxic: no
*Critical Care Note
Total Time (30-74mins, 75-104mins- exclusive of procedures): Not Applicable
Update Note
Update Note:
COVID test positive. Troponin undetectable. I believe patient's symptoms of chills fatigue sore throat and intermittent chest tightness is related to her viral illness. There is no respiratory distress vital signs are stable do not suspect ACS.
No indication for admission. Stable for discharge with instructions for supportive care and return precautions were given
ED Attending Note
-
Portions of this chart may have been created with voice recognition software.� Occasional wrong word or��sound alike� substitutions may have occurred due to the inherent limitations of voice recognition software.
Discharge Plan
Departure
Patient Disposition: Home (Routine Discharge)
Date of Disposition: 03/22/25
Time of Disposition: 13:50
Patient with high blood pressure during this ER visit?: No
Discharge Problem:
COVID-19
Instructions: COVID-19 in adults - Discharge instructions
Prescriptions:
No Action
losartan 50 MG tablet
25 mg PO QPM
multivitamin [Multi-Day] 1 EACH tablet
1 ea PO DAILY
levothyroxine 75 MCG tablet
75 mcg PO DAILY AT 0700
Vitamin D3:
2,000 units PO DAILY
Jardiance 25 mg Tablet
25 mg PO DAILY
Ozempic 1 mg/dose (4 mg/3 mL) Pen Injector
1 mg SC QWEEK
Livalo
0 mg PO .2XAWEEK
polyethylene glycol 3350 17 gram Powder In Packet
17 g PO DAILY Qty: 0 0RF
tramadol 50 mg Tablet
50 mg PO Q6HPRN PRN (Reason: mod to severe pain) Qty: 10 0RF
acetaminophen [Tylenol Extra Strength] 500 mg Tablet
1,000 mg PO Q6HPRN PRN (Reason: mild to mod pain) Qty: 0 0RF
Referrals:
Alexandra Cooper MD [Family Provider, Internal Medicine]
Activity Restrictions/Additional Instructions:
Rest. Stay hydrated. You may continue using Tylenol or ibuprofen for aches or fever. Return if worse otherwise follow-up with your doctor if needed
Interventions
Interventions:
*Risk Screen - Suicide Last Done: 03/22/25 10:10
*General Assessment Last Done: 03/22/25 12:00
*Neglect/Abuse Screening Last Done: 03/22/25 10:10
*ED- Fall Risk Assessment Last Done: 03/22/25 12:00
*ED COVID-19 Vaccine History Last Done: 03/22/25 12:00
ED- Cardiac Assessment Last Done: 03/22/25 12:00
Discharge Date and Time
Print Language: HEBREW
[2025-03-22 13:00] VITALS: BP 121/62
[2025-03-22 13:20] LABS: Troponin I < 0.012 ng/ml
== END 2025-03-22 14:33 | disposition home or self-care (01) ==
LOC: EMR 10:04
PROVIDERS: Physician Assistant; EMERGENCY PHYSICIAN Emergency Medicine; FAMILY PHYSICIAN Internal Medicine
DX: U07.1 COVID-19 (principal); R07.89 Other chest pain; Z11.52 Encounter for screening for COVID-19; E11.9 Type 2 diabetes mellitus without complications; I10 Essential (primary) hypertension; Z90.49 Acquired absence of other specified parts of digestive tract; Z88.1 Allergy status to other antibiotic agents; Z88.5 Allergy status to narcotic agent; Z88.8 Allergy status to other drugs, medicaments and biological substances; Z91.048 Other nonmedicinal substance allergy status
CPT/HCPCS: 99283; 71046; 80053; 84484; 85025; 87502; 87811; 93005

== ENCOUNTER 2025-06-11 06:35 | Day surgery (SDC) | payer OTHER, SELFPAY ==
[2025-06-11 08:53] LABS: Glucose - Point of Care 123 mg/dl (70-99)
== END 2025-06-11 10:11 | disposition home or self-care (01) ==
LOC: GI 06:35
PROVIDERS: ATTENDING PHYSICIAN Internal Medicine; FAMILY PHYSICIAN Internal Medicine
DX: Z12.11 Encounter for screening for malignant neoplasm of colon (principal); K57.30 Diverticulosis of large intestine without perforation or abscess without bleeding; K64.9 Unspecified hemorrhoids; Z86.0101 Personal history of adenomatous and serrated colon polyps
CPT/HCPCS: G0105; 82962